=== PATIENT | male | born 1970 | race Two or more races ===

== ENCOUNTER 2021-06-12 16:19 | Emergency (ER) | payer MEDICAID, OTHER ==
[~2021-06-12] VITALS: Ht 167.6 cm; Wt 90.7 kg
[2021-06-12 16:23] VITALS: BP 143/91
== END 2021-06-12 21:12 | disposition left against medical advice (07) ==
LOC: ER 16:19
DX: S61.211A Laceration without foreign body of left index finger without damage to nail, initial encounter (principal); Z53.21 Procedure and treatment not carried out due to patient leaving prior to being seen by health care provider; W26.8XXA Contact with other sharp object(s), not elsewhere classified, initial encounter; Y93.89 Activity, other specified; Y92.89 Other specified places as the place of occurrence of the external cause; Y99.8 Other external cause status
CPT/HCPCS: 73140